=== PATIENT | female | born 1970 | race Caucasian/White ===

== ENCOUNTER → 2022-06-18 | Outpatient (CLI) | payer OTHER ==
[~2022-06-18] MED LIST: BYSTOLIC PO; CRESTOR20 MG PO; DAYPRO600 MG PO; FLEXERIL10 MG PO; LISINOPRIL5 MG PO; NIACIN 250250 MG/CAP PO; PERCOCET 5/321 UDTAB PO; PREMARIN 1.251.25 MG PO; VITAMIN D PO
== END ==
LOC: MHCPAIN 09:01
DX: M47.892 Other spondylosis, cervical region (principal); M54.12 Radiculopathy, cervical region; G89.29 Other chronic pain
CPT/HCPCS: G0463

== ENCOUNTER → 2022-07-11 | Outpatient (CLI) | payer OTHER | LOC: MHCPAIN 09:21 | DX: M47.812 Spondylosis without myelopathy or radiculopathy, cervical region (principal); M54.12 Radiculopathy, cervical region | CPT/HCPCS: J0461; J1100; Q9967 ==